=== PATIENT | male | born 1945 | race Caucasian/White ===

== ENCOUNTER 2018-02-02 15:29 | Inpatient (IN) | payer MEDICARE ==
[2018-02-02 16:13] LABS: Basophils % (A) 0 %; Eosinophils # (A) 0.1 k/uL (0-0.7); Eosinophils % (A) 2 %; HCT 31.4 % (39.0-53.0); HGB 10.2 gm/dL (13.0-17.5); Lymphocytes # (A) 2.1 k/uL (1.0-4.8); Lymphocytes % (A) 29 %; MCH 26.9 pg (25.0-35.0); MCHC 32.6 g/dL (31.0-37.0); MCV 82.7 fL (80.0-100.0); Mean Platelet Volume 7.1; Monocytes # (A) 0.6 k/uL (0-1.0); Monocytes % (A) 8 %; Neutrophils # (A) 4.2 k/uL (1.3-7.7); Neutrophils % (A) 58 %; Platelet Count 388 k/uL (150-450); RDW 15.5 % (11.5-15.5); WBC 7.4 k/uL (3.8-10.6)
[2018-02-02] MEDS ORDERED: PANTOPRAZOLE 40 MG/10 ML VIAL IVP STA (16:15)
[2018-02-02 16:19] LABS: ALT 70 U/L (21-72); AST 50 U/L (17-59); Albumin 4.1 g/dL (3.5-5.0); Alkaline Phosphatase 51 U/L (38-126); Anion Gap 11 mmol/L; Blood Urea Nitrogen 17 mg/dL (9-20); Calcium 9.3 mg/dL (8.4-10.2); Carbon Dioxide 24 mmol/L (22-30); Chloride 107 mmol/L (98-107); Glucose 115 mg/dL (74-99); Potassium 3.9 mmol/L (3.5-5.1); Sodium 142 mmol/L (137-145); Total Bilirubin 0.2 mg/dL (0.2-1.3); Total Protein 6.5 g/dL (6.3-8.2)
[2018-02-02 16:21] LABS: INR 1.4 (<1.2); Partial Thromboplastin Time 26.6 sec (22.0-30.0); Prothrombin Time 12.9 sec (9.0-12.0)
[2018-02-02] MEDS ORDERED: NALOXONE 0.4 MG/ML 1 ML VIAL IV PRN (16:44)
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
[2018-02-02] MEDS: SODIUM CHLORIDE 0.9% 1,000 ML IV SCH (17:30)
[2018-02-02] MEDS ORDERED: SODIUM CHLORIDE 0.9% 1,000 ML IV ONE (17:32)
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
[2018-02-02] MEDS ORDERED: INSULIN DETEMIR 100 UNIT/ML 10 ML VIAL SQ SCH (21:00)
[2018-02-02 21:22] LABS: Glucose,Whole Blood 112 mg/dL (75-99)
[2018-02-02] MEDS: INSULIN ASPART 100 UNIT/ML 1 ML 10 ML VIAL SQ SCH (21:25)
[2018-02-02] MEDS: PANTOPRAZOLE 40 MG/10 ML VIAL IVP SCH (21:53)
[2018-02-02 23:10] LABS: Basophils % (A) 1 %; Eosinophils # (A) 0.1 k/uL (0-0.7); Eosinophils % (A) 2 %; HCT 27.3 % (39.0-53.0); Hypochromasia Slight; Lymphocytes # (A) 2.3 k/uL (1.0-4.8); Lymphocytes % (A) 31 %; MCH 26.5 pg (25.0-35.0); MCHC 31.9 g/dL (31.0-37.0); Mean Platelet Volume 6.7; Monocytes # (A) 0.5 k/uL (0-1.0); Monocytes % (A) 6 %; Neutrophils # (A) 4.3 k/uL (1.3-7.7); Neutrophils % (A) 57 %; Platelet Count 363 k/uL (150-450); RBC 3.29 m/uL (4.30-5.90); RDW 15.5 % (11.5-15.5); WBC 7.6 k/uL (3.8-10.6)
[2018-02-02 23:36] LABS: HGB 8.7 gm/dL (13.0-17.5)
[2018-02-03 00:03] LABS: Glucose,Whole Blood 120 mg/dL (75-99)
[2018-02-03 02:07] LABS: Hemoglobin A1C 7.3 % (4.0-6.0)
--- NOTE | 2018-02-03 03:19 | P.PN ---
Progress Note - Text Spoke with the patient aboud CBC results. States bleeding has stopped and feeling better. Already received 1 U PRBC and the second unit is getting started right now. Plan to check CBC post transfusion of second unit, around 6 am
[2018-02-03 05:48] LABS: Glucose,Whole Blood 130 mg/dL (75-99)
[2018-02-03] MEDS: INSULIN ASPART 100 UNIT/ML 1 ML 10 ML VIAL SQ SCH ×4 (05:53→21:18)
[2018-02-03] MEDS: SODIUM CHLORIDE 0.9% 1,000 ML IV SCH ×2 (06:50→11:16)
[2018-02-03] MEDS: PANTOPRAZOLE 40 MG/10 ML VIAL IVP SCH ×2 (08:01→21:14)
[2018-02-03 08:40] LABS: HCT 31.4 % (39.0-53.0); MCH 26.8 pg (25.0-35.0); MCHC 31.9 g/dL (31.0-37.0); MCV 83.9 fL (80.0-100.0); Mean Platelet Volume 6.3; Platelet Count 355 k/uL (150-450); RBC 3.74 m/uL (4.30-5.90); RDW 15.5 % (11.5-15.5); WBC 7.2 k/uL (3.8-10.6)
[2018-02-03 08:41] LABS: ALT 72 U/L (21-72); AST 57 U/L (17-59); Albumin 3.5 g/dL (3.5-5.0); Alkaline Phosphatase 44 U/L (38-126); Anion Gap 9 mmol/L; Blood Urea Nitrogen 14 mg/dL (9-20); Calcium 8.7 mg/dL (8.4-10.2); Carbon Dioxide 25 mmol/L (22-30); Chloride 107 mmol/L (98-107); Glucose 123 mg/dL (74-99); Potassium 3.7 mmol/L (3.5-5.1); Sodium 141 mmol/L (137-145); Total Bilirubin 0.7 mg/dL (0.2-1.3); Total Protein 5.7 g/dL (6.3-8.2)
--- NOTE | 2018-02-03 10:15 | P.PN ---
Subjective Progress Note Date: 02/03/18 Patient with history of von Willebrand's disease and history of diverticular bleed presenting with melena and bright red blood per rectum after being transferred from [place] with hemoglobin of 10.2 patient was typed and crossed and transfused 2 overnight. Patient reports bleeding has stopped denies abdominal pain or nausea. Objective - Vital Signs Vital signs: Vital Signs Temp 97.8 F 02/03/18 08:00 Pulse 80 02/03/18 08:00 Resp 20 02/03/18 08:00 BP 112/50 02/03/18 08:00 Pulse Ox 97 02/03/18 08:00 Intake & Output 02/02/18 02/03/18 02/03/18 18:59 06:59 18:59 Intake Total 405 847 3416 Balance 877 194 0117 Weight 102.058 kg 105 kg Intake: Intake, IV Titration 300 1350 Amount Sodium Chloride 0.9% 1, 300 1350 000 ml @ 75 mls/hr IV . [id number] [facility] Rx#:[id number] Oral 0 Blood Product 620 Rc As-1 Unit 310 [id number] As-1 Unit 310 [id number] Other: Voiding Method Toilet # Voids 2 1 - Exam Constitutional: No acute distress, conversant, pleasant Eyes: Anicteric sclerae, moist conjunctiva, no lid-lag, PERRLA ENMT: NC/AT,Oropharynx clear, no erythema, exudates Neck:Supple, FROM, no masses, or JVD, No carotid bruits; No thyromegaly Lungs: Clear to auscultation, Clear to percussion, Normal respiratory effort, no accessory muscle use Cardiovascular: Heart regular in rate and rhythm, No murmurs, gallops, or rubs no peripheral edema Abdominal: Soft Nontender, nom distended, no guarding, no rebound or rigidity, Normoactive bowel sounds No hepatomegaly, No splenomegaly, No palpable mass No abdominal wall hernia noted Skin: Normal temperature, tone, texture, turgor, No induration No subcutaneous nodules, No rash, lesions, No ulcers Extremities:No digital cyanosis No clubbing, Pedal pulses intact and symmetrical Radial pulses intact and symmetrical Normal gait and station, No calf tenderness Psychiatric: Alert and oriented to person, place and time, Appropriate affect Intact judgement Neuro: Muscles Strength 5/5 in all 4 extremities, Sensation to light touch grossly present throughout, Cranial nerves II-XII grossly intact. No focal sensory deficits - Labs CBC & Chem 7: 02/03/18 08:08 02/03/18 08:08 Labs: Abnormal Lab Results - Last 24 Hours (Table) 02/02/18 02/02/18 02/02/18 Range/Units 15:55 15:55 15:55 RBC 3.80 L (4.30-5.90) m/uL Hgb 10.2 L (13.0-17.5) gm/dL Hct 31.4 L (39.0-53.0) % PT (9.0-12.0) sec INR (<1.2) Glucose 115 H (74-99) mg/dL POC Glucose (mg/dL) (75-99) mg/dL Hemoglobin A1c (4.0-6.0) % Total Protein (6.3-8.2) g/dL Crossmatch See Detail 02/02/18 02/02/18 02/02/18 Range/Units 15:55 15:55 21:20 RBC (4.30-5.90) m/uL Hgb (13.0-17.5) gm/dL Hct (39.0-53.0) % PT 12.9 H (9.0-12.0) sec INR 1.4 H (<1.2) Glucose (74-99) mg/dL POC Glucose (mg/dL) 112 H (75-99) mg/dL Hemoglobin A1c 7.3 H (4.0-6.0) % Total Protein (6.3-8.2) g/dL Crossmatch 02/02/18 02/03/18 02/03/18 Range/Units 22:38 00:01 05:46 RBC 3.29 L (4.30-5.90) m/uL Hgb 8.7 L D (13.0-17.5) gm/dL Hct 27.3 L (39.0-53.0) % PT (9.0-12.0) sec INR (<1.2) Glucose (74-99) mg/dL POC Glucose (mg/dL) 120 H 130 H (75-99) mg/dL Hemoglobin A1c (4.0-6.0) % Total Protein (6.3-8.2) g/dL Crossmatch 02/03/18 02/03/18 Range/Units 08:08 08:08 RBC 3.74 L (4.30-5.90) m/uL Hgb 10.0 L (13.0-17.5) gm/dL Hct 31.4 L (39.0-53.0) % PT (9.0-12.0) sec INR (<1.2) Glucose 123 H (74-99) mg/dL POC Glucose (mg/dL) (75-99) mg/dL Hemoglobin A1c (4.0-6.0) % Total Protein 5.7 L (6.3-8.2) g/dL Crossmatch Assessment and Plan (1) Gastrointestinal bleed Narrative/Plan: * Likely diverticular bleed, and GI consulted consider capsule endoscopy * Status post 2 units packed RBC transfusion * We'll continue to monitor * Follow-up GI recommendations Current Visit: Yes Status: Acute Code(s): K92.2 - GASTROINTESTINAL HEMORRHAGE, UNSPECIFIED SNOMED Code(s): 47583689 (2) Acute blood loss anemia Narrative/Plan: * Secondary to GI bleed * Hemoglobin 10g status post 2 units of packed RBCs * We'll continue to cycle hemoglobin we'll observe for another 24 hours * Iron studies pending Current Visit: No Status: Acute Priority: High Code(s): D62 - ACUTE POSTHEMORRHAGIC ANEMIA SNOMED Code(s): 186371108 (3) Type 2 diabetes mellitus with peripheral neuropathy Narrative/Plan: * Blood sugars are well-controlled currently not requiring any supplemental insulin * Continue half Lantus regimen, A1c 7.3 * Current Visit: Yes Status: Acute Code(s): E11.42 - TYPE 2 DIABETES MELLITUS WITH DIABETIC POLYNEUROPATHY SNOMED Code(s): 9284593843727 (4) COPD (chronic obstructive pulmonary disease) Narrative/Plan: * Stable disease without any acute exacerbation Current Visit: Yes Status: Acute Code(s): J44.9 - CHRONIC OBSTRUCTIVE PULMONARY DISEASE, UNSPECIFIED SNOMED Code(s): 56516297 (5) Essential hypertension Narrative/Plan: * Patient's blood pressure stable continue to monitor * continue to hold antihypertensive regimen for now * Current Visit: Yes Status: Acute Code(s): I10 - ESSENTIAL (PRIMARY) HYPERTENSION SNOMED Code(s): 96427984 (6) GERD (gastroesophageal reflux disease) Narrative/Plan: * Continue with PPI therapy Protonix Current Visit: Yes Status: Acute Code(s): K21.9 - GASTRO-ESOPHAGEAL REFLUX DISEASE WITHOUT ESOPHAGITIS SNOMED Code(s): 750637129 (7) Von Willebrand disease Current Visit: No Status: Chronic Priority: High Code(s): D68.0 - VON WILLEBRAND'S DISEASE SNOMED Code(s): 600973644 Plan: Anticipated discharge in 1-2 days
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
[2018-02-03 11:37] LABS: Iron Saturation 6.25 (15.00-50.00)
[2018-02-03 12:08] LABS: Glucose,Whole Blood 138 mg/dL (75-99)
[2018-02-03] MEDS ORDERED: PROPOFOL 10 MG/ML 20 ML VIAL IV ONE (13:33)
[2018-02-03] MEDS ORDERED: LIDOCAINE 1% INJ 10MG/ML (20 ML MDV) ONE (13:33)
--- NOTE | 2018-02-03 13:55 | P.PCN ---
Date of Procedure: 02/03/18 Procedure(s) Performed: BRIEF HISTORY: Patient is a 72-year-old, pleasant, white male, and transfer from [facility] with black tarry stools of 2 days' duration. He had a hemoglobin of 8.1 and 16 subjective transfusion. Hemoglobin today is 10 g/dL. He has been taking Mobic on and off for the last few weeks and hence he scheduled for an upper endoscopy to evaluate further.. PROCEDURE PERFORMED: Esophagogastroduodenoscopy. PREOPERATIVE DIAGNOSIS: Acute GI bleed. IV sedation per anesthesia. PROCEDURE: After informed consent was obtained, the patient was brought into the endoscopy unit. IV sedation was administered by Anesthesia under continuous monitoring. Initially the Olympus GIF-140 video endoscope was inserted into the mouth. Esophagus intubated without any difficulty. It was gradually advanced into the stomach and duodenum and carefully examined. The bulb and the second part of the duodenum appeared normal. The scope at this time was withdrawn to the stomach, adequately insufflated with air, and upon careful examination, mucosa of the antrum, body, cardia and the fundus appeared normal. The scope was then withdrawn into the esophagus. Small hiatal hernia noted. The GE junction was located at 39 cm from the incisors. The esophagus appeared normal. There were no erosions or ulcerations seen and the patient tolerated the procedure well. IMPRESSION: 1. Small hiatal hernia. 2. No evidence of active upper GI bleed or peptic ulcer disease.. RECOMMENDATIONS: The findings of this examination were discussed with the patient as well as his family. His diet will be advanced as tolerated. Since there is no bleeding will not plan any further endoscopic intervention at the present time.
[2018-02-03] MEDS ORDERED: IV FLUID CONTINUATION 1,000 ML IV ONE (13:57)
[2018-02-03 15:20] LABS: Basophils # (A) 0.1 k/uL (0-0.2); Basophils % (A) 1 %; Eosinophils # (A) 0.2 k/uL (0-0.7); Eosinophils % (A) 3 %; HGB 10.4 gm/dL (13.0-17.5); Lymphocytes % (A) 29 %; MCHC 32.7 g/dL (31.0-37.0); MCV 82.6 fL (80.0-100.0); Mean Platelet Volume 6.2; Monocytes # (A) 0.5 k/uL (0-1.0); Monocytes % (A) 7 %; Neutrophils # (A) 3.8 k/uL (1.3-7.7); Neutrophils % (A) 57 %; Platelet Count 339 k/uL (150-450); RBC 3.87 m/uL (4.30-5.90); RDW 15.4 % (11.5-15.5); WBC 6.7 k/uL (3.8-10.6)
[2018-02-03 17:02] LABS: Glucose,Whole Blood 155 mg/dL (75-99)
[2018-02-03 20:30] LABS: Glucose,Whole Blood 195 mg/dL (75-99)
[2018-02-03] MEDS: INSULIN DETEMIR 100 UNIT/ML 10 ML VIAL SQ SCH (21:18)
[2018-02-04 06:26] LABS: Glucose,Whole Blood 128 mg/dL (75-99)
[2018-02-04] MEDS: INSULIN ASPART 100 UNIT/ML 1 ML 10 ML VIAL SQ SCH (06:26)
[2018-02-04 08:17] LABS: Basophils # (A) 0.1 k/uL (0-0.2); Basophils % (A) 1 %; Eosinophils # (A) 0.2 k/uL (0-0.7); Eosinophils % (A) 3 %; HCT 32.1 % (39.0-53.0); HGB 10.4 gm/dL (13.0-17.5); Hypochromasia Slight; Lymphocytes # (A) 2.2 k/uL (1.0-4.8); Lymphocytes % (A) 32 %; MCH 27.4 pg (25.0-35.0); MCHC 32.4 g/dL (31.0-37.0); MCV 84.5 fL (80.0-100.0); Mean Platelet Volume 6.1; Monocytes # (A) 0.4 k/uL (0-1.0); Monocytes % (A) 6 %; Neutrophils # (A) 3.7 k/uL (1.3-7.7); Neutrophils % (A) 54 %; Platelet Count 352 k/uL (150-450); RDW 15.6 % (11.5-15.5); WBC 6.9 k/uL (3.8-10.6)
[2018-02-04 08:48] VITALS: BP 159/70; PULSE 82; RESP 16; TEMP 97.2
[2018-02-04] MEDS: INSULIN DETEMIR 100 UNIT/ML 10 ML VIAL SQ SCH (08:49)
[2018-02-04] MEDS: SODIUM CHLORIDE 0.9% 1,000 ML IV SCH (08:49)
[2018-02-04] MEDS: PANTOPRAZOLE 40 MG/10 ML VIAL IVP SCH (08:49)
--- NOTE | 2018-02-04 11:38 | P.PN ---
Subjective Progress Note Date: 02/04/18 Principal diagnosis: GI bleed No bowel movements 2 days. Denies abdominal pain. Afebrile. Status post EGD for evaluation of dark-colored bowel movements drop in hemoglobin with no evidence of peptic ulcer disease or bleeding. Hemoglobin 10.4 unchanged from yesterday. Requesting discharge. Tolerating diet. Objective - Vital Signs Vital signs: Vital Signs Temp 97.2 F L 02/04/18 08:45 Pulse 82 02/04/18 08:45 Resp 16 02/04/18 08:45 BP 159/70 02/04/18 08:45 Pulse Ox 95 02/04/18 08:45 Intake & Output 02/03/18 02/04/18 02/04/18 18:59 06:59 18:59 Intake Total 2660 Balance 2660 Weight 103.9 kg Intake: IV 950 Intake, IV Titration 1350 Amount Sodium Chloride 0.9% 1, 1350 000 ml @ 75 mls/hr IV . [id number] [facility] Rx#:[id number] Oral 360 Other: Voiding Method Toilet Toilet # Voids 3 2 1 - Exam General appearance: The patient is alert, oriented, in no acute distress. HET: Head is normocephalic and atraumatic. Pupils are equal and reactive. Oropharynx is clear without lesions. Neck: Supple without lymphadenopathy. Trachea midline. Heart: S1 S2. Regular rate and rhythm. Lungs: No crackles or wheezes are heard. Abdomen: Soft, nontender, nondistended with bowel sounds. No peritoneal signs. No palpable organomegaly or masses. Extremities: Normal skin color and turgor. No cyanosis, rash, ulceration, clubbing, or edema. Radial and pedal pulses are 2/4 bilaterally. Neurological: No focal deficits. Strength and sensation are grossly intact. - Labs CBC & Chem 7: 02/04/18 07:51 02/03/18 08:08 Labs: Abnormal Lab Results - Last 24 Hours (Table) 02/02/18 02/03/18 02/03/18 Range/Units 15:55 11:57 14:54 RBC 3.87 L (4.30-5.90) m/uL Hgb 10.4 L (13.0-17.5) gm/dL Hct 32.0 L (39.0-53.0) % RDW (11.5-15.5) % POC Glucose (mg/dL) 138 H (75-99) mg/dL Iron 23 L (65-175) ug/dL Iron Saturation 6.25 L (15.00-50.00) Ferritin 10.8 L (22.0-322.0) ng/mL 02/03/18 02/03/18 02/04/18 Range/Units 16:39 20:27 06:24 RBC (4.30-5.90) m/uL Hgb (13.0-17.5) gm/dL Hct (39.0-53.0) % RDW (11.5-15.5) % POC Glucose (mg/dL) 155 H 195 H 128 H (75-99) mg/dL Iron (65-175) ug/dL Iron Saturation (15.00-50.00) Ferritin (22.0-322.0) ng/mL 02/04/18 Range/Units 07:51 RBC 3.80 L (4.30-5.90) m/uL Hgb 10.4 L (13.0-17.5) gm/dL Hct 32.1 L (39.0-53.0) % RDW 15.6 H (11.5-15.5) % POC Glucose (mg/dL) (75-99) mg/dL Iron (65-175) ug/dL Iron Saturation (15.00-50.00) Ferritin (22.0-322.0) ng/mL Assessment and Plan (1) Gastrointestinal bleed Narrative/Plan: Status post EGD no evidence of bleeding or peptic ulcer disease possible colonic source possible small bowel source. Hemoglobin stable with no evidence of active GI bleeding such as hematemesis hematochezia or melena. Current Visit: Yes Status: Acute Code(s): K92.2 - GASTROINTESTINAL HEMORRHAGE, UNSPECIFIED SNOMED Code(s): 59464802 (2) Colon, diverticulosis Current Visit: Yes Status: Acute Code(s): K57.30 - DVRTCLOS OF LG INT W/O PERFORATION OR ABSCESS W/O BLEEDING SNOMED Code(s): 134485862 (3) Coagulopathy Current Visit: Yes Status: Acute Code(s): D68.9 - COAGULATION DEFECT, UNSPECIFIED SNOMED Code(s): 36338216 (4) Acute blood loss anemia Current Visit: No Status: Acute Priority: High Code(s): D62 - ACUTE POSTHEMORRHAGIC ANEMIA SNOMED Code(s): 247442878 (5) Von Willebrand disease Current Visit: No Status: Chronic Priority: High Code(s): D68.0 - VON WILLEBRAND'S DISEASE SNOMED Code(s): 652141593 Plan: 1. No further endoscopic workup at this time. CBC in 3-5 days. No NSAIDs. Follow with PCP in 7-10 days. Follow up in GI office in 2-3 weeks for reevaluation. Patient was advised to return to the emergency room if he has any further bloody bowel movements abdominal pain chest pain shortness of breath or lightheadedness. Assessment and plan a care discussed with Dr. Her
[2018-02-04 11:59] LABS: Glucose,Whole Blood 201 mg/dL (75-99)
--- NOTE | 2018-02-04 12:21 | P.DS ---
Providers Date of admission: 02/02/18 16:44 Expected date of discharge: 02/04/18 Attending physician: Arsen Mcleod MD Consults: 02/02/18 16:44 Consult Physician Routine Consulting Provider: Veda Her Consult Reason/Comments: GI bleed Do you want consulting provider notified?: Yes Primary care physician: Bob Anders - Discharge Diagnosis(es) (1) Gastrointestinal bleed Status: Acute (2) Acute blood loss anemia Status: Acute Priority: High (3) Type 2 diabetes mellitus with peripheral neuropathy Status: Acute (4) COPD (chronic obstructive pulmonary disease) Status: Acute (5) Essential hypertension Status: Acute (6) GERD (gastroesophageal reflux disease) Status: Acute (7) Von Willebrand disease Status: Chronic Priority: High Hospital Course: The patient is a 72-year-old male with a past medical history of von Willebrand's disease and history of diverticular bleed 2 years ago that was admitted with concern for GI bleed after presenting here from [place] with melena and bright red blood per rectum, he was admitted with acute blood loss anemia with a drop of his hemoglobin as low as 8.7, he was typed and crossed and transfused a total of 2 units packed RBCs. GI was consulted and Dr. Her performed a EGD that showed no evidence of bleeding or peptic ulcer disease, however unable to rule out possible small bowel source. Posttransfusion the patient's hemoglobin maintained at 8.4 and was stable for at least 24 hours prior to discharge. The patient was discharged home in stable condition with plans to recheck CBC in 3-5 days, instructions not to use any NSAIDs And follow- up in GI office in 2-3 weeks for evaluation. Return precautions were provided and the patient was discharged home in stable condition. This discharge process took approximately 35 minutes Patient Condition at Discharge: Stable Plan - Discharge Summary Discharge Rx Participant: Yes New Discharge Prescriptions: Continue Beclomethasone Dipropionate [Qvar 80 mcg/puff] 1 puff INHALATION RT-BID [place]-3 Acid Ethyl Esters [Lovaza] 1 gm PO QID Terazosin HCl [Hytrin] 10 mg PO HS Omeprazole [PriLOSEC] 40 mg PO HS metFORMIN HCL 1,000 mg PO BID Simvastatin [Zocor] 40 mg PO HS Vits A,C,E/Lutein/Minerals [Ocuvite with Lutein Tablet] 1 tab PO HS Insuln Asp Prt/Insulin Aspart [NovoLOG MIX 70-30 VIAL] 90 units SQ AC-BID Lisinopril [Zestril] 40 mg PO HS Gemfibrozil [Lopid] 600 mg PO BID Amitriptyline HCl [Elavil] 25 mg PO HS Multivitamins, Thera [Multivitamin (formulary)] 1 tab PO DAILY amLODIPine [Norvasc] 5 mg PO BID Albuterol Sulfate [Proventil Hfa] 1 - 2 puff INHALATION RT-Q6H PRN PRN Reason: Shortness Of Breath Vitamin B Complex 1 cap PO DAILY Aspirin EC [Ecotrin Low Dose] 81 mg PO DAILY Metoprolol Succinate (ER) [Toprol XL] 50 mg PO BID Discharge Medication List Amitriptyline HCl [Elavil] 25 mg PO HS 11/26/15 [History] Beclomethasone Dipropionate [Qvar 80 mcg/puff] 1 puff INHALATION RT-BID [History] Gemfibrozil [Lopid] 600 mg PO BID 11/26/15 [History] Insuln Asp Prt/Insulin Aspart [NovoLOG MIX 70-30 VIAL] 90 units SQ AC-BID [History] Lisinopril [Zestril] 40 mg PO HS 11/26/15 [History] [place]-3 Acid Ethyl Esters [Lovaza] 1 gm PO QID 11/26/15 [History] Omeprazole [PriLOSEC] 40 mg PO HS 11/26/15 [History] Simvastatin [Zocor] 40 mg PO HS 11/26/15 [History] Terazosin HCl [Hytrin] 10 mg PO HS 11/26/15 [History] Vits A,C,E/Lutein/Minerals [Ocuvite with Lutein Tablet] 1 tab PO HS 11/26/15 [ History] metFORMIN HCL 1,000 mg PO BID 11/26/15 [History] Albuterol Sulfate [Proventil Hfa] 1 - 2 puff INHALATION RT-Q6H PRN 12/25/15 [ History] Multivitamins, Thera [Multivitamin (formulary)] 1 tab PO DAILY 12/25/15 [History ] amLODIPine [Norvasc] 5 mg PO BID 12/25/15 [History] Aspirin EC [Ecotrin Low Dose] 81 mg PO DAILY 02/02/18 [History] Metoprolol Succinate (ER) [Toprol XL] 50 mg PO BID 02/02/18 [History] Vitamin B Complex 1 cap PO DAILY 02/02/18 [History] Follow up Appointment(s)/Referral(s): Bob Anders MD [Primary Care Provider] - 02/10/18 4:00 pm (Thursday) Veda Her MD [STAFF PHYSICIAN] - 03/02/18 3:15 pm (Thursday at [facility]) Patient Instructions/Handouts: Hiatal Hernia (DC), Gastrointestinal Bleeding ( DC) Activity/Diet/Wound Care/Special Instructions: Please have follow up blood work drawn on Thursday, February 08 Discharge Disposition: HOME SELF-CARE
== END 2018-02-04 11:45 | disposition home or self-care (01) | DRG 378 ==
LOC: EC 15:29 → 6SEL 16:44
PROVIDERS: ADMIT Family Medicine; ATTEND Family Medicine
PROC: 30233N1 Transfusion of Nonautologous Red Blood Cells into Peripheral Vein, Percutaneous Approach (ICD-10-PCS; 2018-02-03)
PROC: 0DJ08ZZ Inspection of Upper Intestinal Tract, Via Natural or Artificial Opening Endoscopic (ICD-10-PCS; principal; 2018-02-03 09:15)
DX: K92.2 Gastrointestinal hemorrhage, unspecified (principal); D62 Acute posthemorrhagic anemia; D68.0 Von Willebrand disease; K57.30 Diverticulosis of large intestine without perforation or abscess without bleeding; E11.42 Type 2 diabetes mellitus with diabetic polyneuropathy; E78.5 Hyperlipidemia, unspecified; F32.9 Major depressive disorder, single episode, unspecified; G47.33 Obstructive sleep apnea (adult) (pediatric); I10 Essential (primary) hypertension; I25.10 Atherosclerotic heart disease of native coronary artery without angina pectoris; J44.9 Chronic obstructive pulmonary disease, unspecified; K21.9 Gastro-esophageal reflux disease without esophagitis; K44.9 Diaphragmatic hernia without obstruction or gangrene; M06.9 Rheumatoid arthritis, unspecified; M16.0 Bilateral primary osteoarthritis of hip; Z95.5 Presence of coronary angioplasty implant and graft; Z79.4 Long term (current) use of insulin; Z79.899 Other long term (current) drug therapy; Z79.82 Long term (current) use of aspirin; Z88.6 Allergy status to analgesic agent; Z87.891 Personal history of nicotine dependence; Z85.51 Personal history of malignant neoplasm of bladder; Z86.010 Personal history of colon polyps; Z87.01 Personal history of pneumonia (recurrent); Z90.49 Acquired absence of other specified parts of digestive tract; Z98.49 Cataract extraction status, unspecified eye; Z96.1 Presence of intraocular lens; Z83.3 Family history of diabetes mellitus; Z82.49 Family history of ischemic heart disease and other diseases of the circulatory system
CPT/HCPCS: 36415; 43235; 80053; 82728; 83036; 83540; 83550; 85025; 85027; 85610; 85730; 86850; 86900; 86901; 86920; 94660; 96374; 99285